=== PATIENT | male | born 1960 | race Caucasian/White ===

== ENCOUNTER 2022-08-28 14:18 | Emergency (ER) | payer OTHER, SELFPAY ==
[2022-08-28 14:31] VITALS: BP 137/95; PULSE 75; RESP 18; TEMP 36.4; O2SAT 97; BMI 28.2
--- NOTE | 2022-08-28 14:35 | CRLHL7_ITS ---
For Patients: As a result of the Cures Act, medical imaging exams and procedure reports are released immediately into your electronic medical record. You may view this report before your referring provider. If you have questions, please contact your health care provider. INDICATION: Injury. TECHNIQUE: Three views of the left 2nd finger. FINDINGS: There is dislocation at the PIP joint, without definitive/displaced fracture. Dictated by Napoleon Perez MD @ 08/28/2022 3:11:28 PM (Electronically Signed)
[2022-08-28] MEDS: LIDOCAINE 1 % PF 30 ML INJECTION (15:30)
--- NOTE | 2022-08-28 15:39 | ED_ITS ---
HPI - Extremity Injury (Upper) General Chief Complaint: Extremity Pain/Injury, Upper Stated Complaint: Left index finger injury Time Seen by Provider: 08/28/22 15:10 History of Present Illness HPI narrative: This 61-year-old male comes in with an injury to his left index finger. He has a obvious dislocation of his MP joint of the left index finger. He states that he was holding a dog by its caller with just that 1 finger. He this was in the process of training his dogs for bird hunting. At 1 point the dog jumped and twisted and he now is unable to move his left index finger at the PIP joint. He does not report any other injury. He is otherwise in good health. Related Data Home Medications Medication Instructions Recorded Confirmed aspirin 81 mg tablet,delayed 81 mg PO DAILY 08/28/22 08/28/22 release (Adult Aspirin Regimen) lisinopril 20 mg tablet 20 mg PO DAILY 08/28/22 08/28/22 Allergies Allergy/AdvReac Type Severity Reaction Status Date / Time No Known Drug Allergies Allergy Verified 08/28/22 14:34 Review of Systems Status of ROS: Reports: 10 or more systems reviewed and unremarkable except as noted in History and below Narrative: Constitutional: No fevers, no weight gain or loss. Eyes: No discharge. No vision changes. HENT: No congestion, no sore throat, no ear pain. Cardiovascular: No chest pain, no palpitations. Respiratory: No shortness of breath, no wheezes, no cough. Gastrointestinal: No abdominal pain, no vomiting, no diarrhea. Genitourinary: No dysuria, no hematuria. Musculoskeletal: Normal range of motion. Skin: No rashes, no pruritis. Neurological: No dizziness, weakness, sensory change, speech change. Endo/Heme/Allergies: No bruising or bleeding. No polydipsia. Pysch: no suicidality, no anxiety, no insomnia. All other systems reviewed and are negative. Exam Narrative: Exam Narrative: Constitutional: Well-developed, well-nourished, no acute distress. HEENT: Normocephalic, atraumatic. Neck: Normal range of motion. Nontender. Supple. Heart: Intact distal pulses. Lungs: No chest discomfort. No wheezes, rhonchi, or rales. Abdomen: Nontender. Back: Normal range of motion. Extremities: Deformity of the left index finger at the PIP joint typical of a dislocation. Skin: Intact. No rash. Warm. No erythema or pallor. Neurologic: No altered sensation. No weakness. Alert and oriented. Psychiatric: No suicidality. No anxiety or depression. No insomnia. Nursing notes and vitals signs are reviewed. Const: Vital Signs, click to edit/add: Vital Signs - 24 hr 08/28/22 14:31 Temperature 97.5 F L Pulse Rate [Right Pulse Oximeter] 75 Respiratory Rate 18 Blood Pressure [Ri ght Upper Arm] 137/95 H Pulse Oximetry 97 Oxygen Delivery Me thod Room Air Course Vital Signs Vital signs: Initial Vital Signs Temperature 97.5 F L 08/28/22 14:31 Temperature Source Temporal Artery Scan 08/28/22 14:31 Pulse Rate 75 08/28/22 14:31 Respiratory Rate 18 08/28/22 14:31 Blood Pressure 137/95 H 08/28/22 14:31 Blood Pressure Mean 109 H 08/28/22 14:31 Blood Pressure Position Sitting 08/28/22 14:31 Pulse Oximetry 97 08/28/22 14:31 Oxygen Delivery Method Room Air 08/28/22 14:31 Vital Signs Temperature 97.5 F L 08/28/22 14:31 Pulse Rate 75 08/28/22 14:31 Respiratory Rate 18 08/28/22 14:31 Blood Pressure 137/95 H 08/28/22 14:31 Pulse Oximetry 97 08/28/22 14:31 Oxygen Delivery Method Room Air 08/28/22 14:31 Temperature 97.5 F L 08/28/22 14:31 Pulse Rate 75 08/28/22 14:31 Respiratory Rate 18 08/28/22 14:31 Blood Pressure 137/95 H 08/28/22 14:31 Pulse Oximetry 97 08/28/22 14:31 Oxygen Delivery Method Room Air 08/28/22 14:31 MDM - Extremity Injury (Upper) MDM Narrative Medical decision making narrative: X-ray images of the left index finger show dislocation at the PIP joint. I do not see any evidence of fracture. The patient received a digital block of this finger by using 1% lidocaine. I was then able to reduce the dislocation. The patient states that he did not feel any pain. He has normal range of motion out of this finger. I did offer a finger splint but encouraged him to increase activity as tolerated. He can use finger ernestine taping if needed. Discharge Plan Discharge Clinical Impression: Dislocation of finger Patient Disposition: Home, Self-Care Condition: Improved Additional Instructions: Increase activity as tolerated. Use [id number] medicines as needed and directed. Follow up with MD or return if worsening. Prescriptions: No Action lisinopril 20 mg tablet 20 mg PO DAILY aspirin [Adult Aspirin Regimen] 81 mg tablet,delayed release (DR/EC) 81 mg PO DAILY Follow Up/Referrals: Provider,Not a Local [Primary Care Provider] - Stand Alone Forms: [employer] Info Instructions
== END 2022-08-28 15:50 | disposition home or self-care (01) ==
PROVIDERS: Emergency Provider Emergency Medicine Emergency Medical Services
DX: S63.271A Dislocation of unspecified interphalangeal joint of left index finger, initial encounter (principal); X50.1XXA Overexertion from prolonged static or awkward postures, initial encounter
CPT/HCPCS: 26770; 73140; 99283; 99284; J2001